=== PATIENT | male | born 2000 | race Caucasian/White ===

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

== ENCOUNTER 2021-07-25 17:26 | Emergency (ER) | payer SELFPAY ==
[2021-07-25] MEDS ORDERED: Cephalexin 500 MG Cap PO ONE (17:27)
[2021-07-25] MEDS ORDERED: Ketorolac 30 MG/ML SDV IVPUSH ONE (18:11)
[2021-07-25] MEDS ORDERED: Sodium Chloride 0.9% 1,000 ML IV ONE (18:11)
[2021-07-25] MEDS ORDERED: ceFAZolin 1 GM Vial IVPUSH ONE (19:15)
[2021-07-25] MEDS: Cephalexin 500 MG Cap PO ONE ×2 (19:43→23:00)
[2021-07-25] MEDS ORDERED: Acetaminophen 500 MG Tab PO ONE (19:50)
[2021-07-25 22:57] VITALS: BP 140/79; PULSE 104
== END 2021-07-25 22:10 | disposition home or self-care (01) ==
LOC: FB.ED 17:26
DX: L03.116 Cellulitis of left lower limb (principal); E66.9 Obesity, unspecified; Z68.45 Body mass index [BMI] 70 or greater, adult; Z79.899 Other long term (current) drug therapy; Z72.0 Tobacco use; Z91.09 Other allergy status, other than to drugs and biological substances
CPT/HCPCS: 36415; 80076; 83605; 85025; 86140; 96374; 96375; 99284; A9270; J0690; J1885; J7030; 99282

== ENCOUNTER 2021-11-01 11:56 | Emergency (ER) | payer OTHER ==
[2021-11-01] MEDS ORDERED: Morphine 4 MG/ML VIAL IM ONE (11:59)
[2021-11-01 13:07] VITALS: BP 130/78; PULSE 81
== END 2021-11-01 14:39 | disposition home or self-care (01) ==
LOC: FB.ED 11:56
DX: S83.92XA Sprain of unspecified site of left knee, initial encounter (principal); E66.9 Obesity, unspecified; F17.210 Nicotine dependence, cigarettes, uncomplicated; Z91.09 Other allergy status, other than to drugs and biological substances; Z68.34 Body mass index [BMI] 34.0-34.9, adult; X50.1XXA Overexertion from prolonged static or awkward postures, initial encounter
CPT/HCPCS: 73560-LT; 96372; 99000; 99282; 99283; J2270